=== PATIENT | male | born 1950 | race Caucasian/White ===

== ENCOUNTER 2021-05-26 13:24 | Emergency (ER) | payer MEDICARE, OTHER ==
[~2021-05-26] VITALS: Ht 165.1 cm; Wt 74.8 kg
[2021-05-26 13:45] LABS: HEMATOCRIT 33.7 % (36.7-47.1); MEAN CORPUSCULAR HEMOGLOBIN 30.1 uug (23.8-33.4); MEAN CORPUSCULAR VOLUME 86.8 fL (73.0-96.2); PLATELET COUNT (AUTO) 256 K/uL (152-348)
[2021-05-26 13:57] LABS: CARBON DIOXIDE 20 mmol/L (21-32); CHLORIDE 109 mmol/L (98-107); CREATININE 3.2 mg/dL (0.6-1.3); GLUCOSE 138 mg/dL (74-106); UREA NITROGEN, BLOOD 40 mg/dL (7-18)
[2021-05-26 14:02] LABS: ALKALINE PHOSPHATASE 124 U/L (50-136); BILIRUBIN,TOTAL 0.2 mg/dL (0.2-1.0); TOTAL PROTEIN, SERUM 7.1 g/dL (6.4-8.2)
[2021-05-26 14:13] LABS: BILIRUBIN,DIRECT < 0.1 mg/dL (0.0-0.2)
--- NOTE | 2021-05-26 14:53 | NUR ---
Patient is resting comfortably ongurney, pending results and disposition
[2021-05-26 14:55] LABS: ALANINE AMINOTRANSFERASE 15 U/L (16-63); ASPARTATE AMINOTRANSFERASE 9 U/L (15-37)
--- NOTE | 2021-05-26 15:16 | NUR ---
ER REGISTRATION/ADMITTING STAFF [place] notified re: plan to admit
[2021-05-26] MEDS ORDERED: IV NS 1000 ML 1,000 ML IV ONE (15:30)
[2021-05-26] MEDS ORDERED: POTASSIUM BICARBONATE/CIT AC 25 MEQ TABLET.EFF ONE (16:06)
--- NOTE | 2021-05-26 17:28 | NUR ---
Patient is waiting for insurance authorization to admit vs transfer to another acute hospital. Patient is resting comfortably on gurney with eyes closed. PATIENT IS PAIN FREE AT THIS TIME.
--- NOTE | 2021-05-26 18:03 | NUR ---
IV removed. Catheter intact and site benign. Pressure and 4x4 gauze applied to site. No bleeding noted. Patient does not wish to proceed with medical care recommended by Dr. Bishop. Patient was given information (in [place] with ER registration staff Louann as traffic law attorney) related to possible complications, up to and including , which could occur as a result of leaving the hospital at this time. Patient verbalized understanding of risks involved due to leaving against medical advice. Patient signed AMA form.
== END 2021-05-26 17:59 | disposition left against medical advice (07) ==
LOC: ER 13:24
DX: N17.9 Acute kidney failure, unspecified (principal); Z20.822 Contact with and (suspected) exposure to COVID-19; E87.2 Acidosis; D64.9 Anemia, unspecified; Z53.29 Procedure and treatment not carried out because of patient's decision for other reasons; E78.5 Hyperlipidemia, unspecified; N18.9 Chronic kidney disease, unspecified; Z91.14 Patient's other noncompliance with medication regimen
CPT/HCPCS: 36415; 71045; 85025; 93005; A4663; J7030